=== PATIENT | female | born 1985 | race American Indian/Alaskan Native ===

== ENCOUNTER 2017-03-16 08:04 | Emergency (ER) | payer BC ==
[2017-03-16 08:22] VITALS: BMI 45.1
[2017-03-16 08:25] VITALS: BP 92/66; PULSE 98; RESP 20; TEMP 98.8; O2SAT 98
--- NOTE | 2017-03-16 09:32 | ED PDOC ---
Arrival/HPI - General Chief Complaint: Flu-like Symptoms Time Seen by Provider: 03/16/17 08:20 Historian: Patient - History of Present Illness Narrative History of Present Illness (Text): 03/16/17 09:26 Pt is a 31 yo F c/o flu-like symptoms x 3 days. She reports chills, sinus congestion, cough and loss of appetite since Sunday that has not resolved and is worsening. She states that despite OTC, she continues to cough until she she spits up blood and becomes nauseated. Reports diarrhea Sunday and Sunday but remained on liquids until today. Pt woke up extremely chilled and diaphoretic this morning. Pt denies abdominal pain, cp, LONG, vomiting or recent diarrhea. 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 Pt was diagnosed with asthma and she uses DuoNeb treatment prn. 03/16/17 09:35 Time/Duration: < week Symptom Onset: Gradual Symptom Course: Unchanged, Worsening Quality: Aching Severity Level: Moderate Activities at Onset: Rest, Light, Eating, Sleeping Context: Sitting, Standing, Walking Past Medical History - Provider Review Nursing Documentation Reviewed: Yes - Travel History Have you recently traveled outside [place] w/in the past 3 mons?: No - Past History Past History: No Previous - Infectious Disease Hx of Infectious Diseases: None - Tetanus Immunization Tetanus Immunization: Unknown - Reproductive Menopause: No Currently : No - Past Medical History Past Medical History: No Previous - Cardiac Hx Cardiac Disorders: No - Pulmonary Hx Respiratory Disorders: Yes Hx Asthma: Yes - Neurological Hx Neurological Disorder: No - HEENT Hx HEENT Disorder: No - Renal Hx Renal Disorder: No - Endocrine/Metabolic Hx Endocrine Disorders: No - Hematological/Oncological Hx Blood Disorders: No - Integumentary Hx Dermatological Disorder: No - Musculoskeletal/Rheumatological Hx Musculoskeletal Disorders: No - Gastrointestinal Hx Gastrointestinal Disorders: No - Genitourinary/Gynecological Hx Genitourinary Disorders: No - Psychiatric Hx Psychophysiologic Disorder: No Hx Substance Use: No - Past Surgical History Past Surgical History: No Previous - Surgical History Hx Abdominal Aortic Aneurysm Repair: No - Anesthesia Hx Anesthesia: No Family/Social History - Physician Review Nursing Documentation Reviewed: Yes Family/Social History: No Known Family HX Smoking Status: Never Smoked Hx Alcohol Use: No Hx Substance Use: No Allergies/Home Meds Allergies/Adverse Reactions: Allergies amoxicillin Allergy (Verified 03/16/17 08:21) ANAPHYLAXIS nut - unspecified Allergy (Verified 03/16/17 08:21) ANGIOEDEMA Penicillins Allergy (Verified 03/16/17 08:21) ANAPHYLAXIS Home Medications: Home Meds Medication Instructions Recorded Confirmed No Known Home Med 03/16/17 03/16/17 Review of Systems - Physician Review All systems were reviewed & negative as marked: Yes - Review of Systems Constitutional: Fatigue Eyes: absent: Normal, Vision Changes, Photophobia, Eye Pain, Other ENT: Sore Throat, Sinus Congestion. absent: Normal, Hearing Changes, Tinnitus, TMJ Pain, Voice Changes, Rhinorrhea, Epistaxis, Other Respiratory: Cough. absent: Normal, SOB, Sputum, Wheezing, Other Cardiovascular: Normal. absent: Chest Pain, Palpitations, Edema, Calf Pain, CHENEY , Orthopnea, SY, Syncope, Other Gastrointestinal: Normal, Diarrhea, Nausea, Appetite Changes. absent: Abdominal Pain, Stool Changes, Constipation, Vomiting, Hematochezia, Hematemesis , Anorexia, Food Intolerance, Other Skin: Normal. absent: Rash, Pruritis, Skin Lesions, Laceration, Abscess, Ulcer , Cellulitis, Other Neurological: Normal. absent: Headache, Dizziness, Focal Weakness, Gait Changes , Speech Changes, SC, Facial Droop, DE, Disequilibrium, SE, Seizure, Other Hemo/Lymphatic: Normal. absent: Adenopathy, Easy Bleeding, Easy Bruising, Other Physical Exam Vital Signs Reviewed: Yes Vital Signs Temp Pulse Resp BP Pulse Ox 03/16/17 08:22 98.8 F 98 H 20 92/66 L 98 Temperature: Afebrile Blood Pressure: Hypotensive Pulse: Regular Respiratory Rate: Normal Appearance: Positive for: Well-Appearing, Non-Toxic, Ill-Appearing, Uncomfortable. No: Comfortable, Unkept, Cachectic, Other Pain Distress: Mild Mental Status: Positive for: Alert and Oriented X 3 - Systems Exam Head: Present: Atraumatic Pupils: Present: PERRL Extroacular Muscles: Present: EOMI Conjunctiva: Present: Normal Ears: Present: Normal, NORMAL TM, Normal Canal Mouth: Present: Moist Mucous Membranes Pharnyx: Present: Other (hard palate ulceration, [id number]) Nose (External): Present: Atraumatic Nose (Internal): Present: Normal Inspection. No: No Active Bleeding, Moist, Engorged, Edematous, Boggy, Clear Mucous, Rhinorrhea, Purulent Mucous, Septal Deviation, Septal Hematoma, Epistaxis, Other Neck: Present: Normal Range of Motion. No: Meningeal Signs, MIDLINE TENDERNESS , Paraspinal Tenderness, JVD, Lymphadenopathy, Bruit, Trachea Midline, Other Respiratory/Chest: Present: Clear to Auscultation, Good Air Exchange. No: Respiratory Distress, Accessory Muscle Use, Wheezes, Decreased Breath Sounds, Rales, Retracting, Rhonchi, Tachypneic, Tender to Palpation, Other Cardiovascular: Present: Regular Rate and Rhythm, Normal S1, S2. No: Murmurs, Irregular Rhythm, Peripheal Pulses Present, Tachycardic, Bradycardic, Rub, Gallop, Muffled, Other Abdomen: Present: Normal Bowel Sounds. No: Tenderness, Distention, Peritoneal Signs, Rebound, Guarding, McBurney's Point Tender, Rovsing's Sign Present, Hernias, Feeding Tubes, Ostomy Tubes, Mass/Organomegaly, Scars, Other Upper Extremity: Present: Normal Inspection. No: Cyanosis, Edema, Normal ROM, NORMAL PULSES, Tenderness, Swelling, Erythema, Neurovascularly Intact, Temperature Abnormalties, Capillary Refill < 2s, Deformity, Norm 2-Pt Discrimination, Other Lower Extremity: Present: Normal Inspection. No: Edema, CALF TENDERNESS, NORMAL PULSES, Cyanosis, Normal ROM, Cisco's Sign, Tenderness, Swelling, Erythema, Deformity, Temperature Abnormalties, Neurovascularly Intact, Capillary Refill < 2 s, Other Skin: Present: Warm, Dry, Normal Color. No: Rashes, Diaphoretic, Erythematous, Induration, Hot, Cold, Pale, Laceration, Abscess, Abrasion, Other Psychiatric: Present: Alert, Oriented x 3, Normal Insight, Normal Concentration Medical Decision Making ED Course and Treatment: 03/16/17 09:45 Pt is a 31 yo F c/o flu-like symptoms x 3 days. She reports chills, sinus congestion, cough and loss of appetite since Sunday that has not resolved and is worsening. On exam, pt is shivering but talkative and ambulatory. Pt real has viral influenza but will work her up for the followin. Influenza 2. Bacterial infection 3. PNA Plan: Influenza Ag test-->NEGATIVE cbc w diff, cmp, UA-->wnl IVF 500cc bolus over 30 mins CXR 2 views--->unremarkable Given the lab findings, pt will be discharged home on supportive care of fluids , tylenol or ibuprofen for pain and inflammation, warm water gargle for mouth ulcer, rest and expectorant for bronchial mucus. advised to continue using Duoneb as instructed. - Lab Interpretations Lab Results: 03/16/17 10:15 03/16/17 10:15 Lab Results 03/16/17 10:25: Urine Color Yellow, Urine Appearance Clear, Urine pH 6.0, Ur Specific Armstrong 1.025, Urine Protein Trace H, Urine Glucose (UA) Negative, Urine Ketones Negative, Urine Blood Negative, Urine Nitrate Negative, Urine Bilirubin Negative, Urine Urobilinogen 0.2, Ur Leukocyte Esterase Negative, Urine RBC 0 - 2, Urine WBC 0 - 2, Ur Epithelial Cells 10 - 12, Urine Bacteria Trace 03/16/17 10:15: WBC 6.7, RBC 4.29, Hgb 11.9 L, Hct 35.8 L, MCV 83.4, MCH 27.7, MCHC 33.2, RDW 14.7 H, Plt Count 297, MPV 10.3, Gran % 60.9, Lymph % (Auto) 27.7 , [place] % (Auto) 9.2 H, Eos % (Auto) 2.1, Baso % (Auto) 0.1, Gran # 4.09, Lymph # 1.9, [place] # 0.6, Eos # 0.1, Baso # 0.01 03/16/17 10:15: Sodium 143, Potassium 4.2, Chloride 106, Carbon Dioxide 26, Anion Gap 16, BUN 14, Creatinine 0.7, Est GFR ( Amer) > 60, Est GFR (Non- Af Amer) > 60, Random Glucose 86, Calcium 9.3, Total Bilirubin 0.3, AST 44 H, ALT 53, Alkaline Phosphatase 104, Total Protein 8.4 H, Albumin 4.4, Globulin 4.0 , Albumin/Globulin Ratio 1.1 03/16/17 08:20: Influenza Typ A,B (EIA) Negative for flu a/b - RAD Interpretation Radiology Orders: 03/16/17 08:30 CHEST TWO VIEWS (PA/LAT) [RAD] Stat Official read indicates unremarkable Ampoule Examiner: Radiologist - EKG Interpretation EKG Interpretation (Text): 03/16/17 10:14 Wet read by TARIQ Addison: CXR shows infiltrates bilateral lung ji - Medication Orders Current Medication Orders: Discontinued Medications Sodium Chloride (Sodium Chloride 0.9%) 500 mls @ 999 mls/hr IV .Q31M STA Stop: 03/16/17 10:25 Last Admin: 03/16/17 10:36 Dose: 999 mls/hr eMAR Start Stop Document 03/16/17 10:36 SE (Rec: 03/16/17 10:36 SE [id number]) Intravenous Solution Start Date 03/16/17 Start Time 10:36 Disposition/Present on Arrival - Present on Arrival Any Indicators Present on Arrival: Yes History of DVT/PE: No History of Uncontrolled Diabetes: No Urinary Catheter: No History of Decub. Ulcer: No History Surgical Site Infection Following: None - Disposition Have Diagnosis and Disposition been Completed?: Yes Diagnosis: Upper respiratory infection with cough and congestion Disposition: HOME/ ROUTINE Disposition Time: 11:30 Isolation: Contact Patient Plan: Discharge Condition: IMPROVED Discharge Instructions (ExitCare): Upper Respiratory Infection (ED) Additional Instructions: Dear Patient, You have been diagnosed with an upper respiratory infection that responds best with supportive care such as plenty of rest, fluids, tylenol or ibuprofen for pain and fever. Please make sure you wash your hands frequently to avoid transmission of the virus to others. If you experience severe fever, pain, chest pain or shortness of breath of any other alarming symptoms, return to the emergency room immediately. Please follow up with your Primary Doctor in less than a week. All the best in your recovery. Referrals: Martha Felton MD [Primary Care Provider] - Follow up with primary Forms: [employer] (Yakut), WORK NOTE
[2017-03-16] MEDS ORDERED: Sodium Chloride 0.9% 500 ML IV STA (09:55)
[2017-03-16 10:30] LABS: URINE BILIRUBIN NEGATIVE (NEGATIVE); URINE BLOOD NEGATIVE (NEGATIVE); URINE GLUCOSE (UA) NEGATIVE (NEGATIVE); URINE LEUKOCYTE ESTERASE NEGATIVE Leu/uL (NEGATIVE); URINE NITRATE NEGATIVE (NEGATIVE); URINE PROTEIN TRACE mg/dL (<30 mg/dL); URINE UROBILINOGEN 0.2 E.U./dL (<1 E.U./dL)
[2017-03-16 10:33] LABS: URINE APPEARANCE CLEAR (CLEAR); URINE COLOR YELLOW (YELLOW)
[2017-03-16 10:34] LABS: BASO # 0.01 K/mm3 (0.0-2.0); BASO % 0.1 % (0.0-3.0); EOS # 0.1 (0.0-0.7); EOS % 2.1 % (1.5-5.0); GRAN # 4.09 (1.4-6.5); GRAN % 60.9 % (50.0-68.0); HEMOGLOBIN 11.9 g/dL (12.0-16.0); LYMPH # 1.9 (1.2-3.4); LYMPH % 27.7 % (22.0-35.0); MEAN CELL VOLUME 83.4 fl (80.0-105.0); MEAN CORPUSCULAR HEMOGLOBIN 27.7 pg (25.0-35.0); MEAN CORPUSCULAR HGB CONC 33.2 g/dl (31.0-37.0); MEAN PLATELET VOLUME 10.3 fl (7.0-11.0); MONO # 0.6 (0.1-0.6); MONO % 9.2 % (1.0-6.0); RBC 4.29 10^6/uL (3.5-6.1); RED CELL DISTRIBUTION WIDTH 14.7 % (11.5-14.5); WHITE BLOOD COUNT 6.7 10^3/ul (4.5-11.0)
[2017-03-16 10:37] LABS: ALBUMIN 4.4 g/dL (3.0-4.8); ALT/SGPT 53 U/L (7-56); AST/SGOT 44 U/L (14-36); BLOOD UREA NITROGEN 14 mg/dL (7-21); CALCIUM 9.3 mg/dL (8.4-10.5); GFR AFRICAN-AMERICAN > 60; GFR NON-AFRICAN AMERICAN > 60
[2017-03-16 10:39] LABS: ALB/GLOB RATIO 1.1 (1.1-1.8)
[2017-03-16 10:44] LABS: URINE RBC 0 - 2 /hpf (0-2); URINE WBC 0 - 2 /hpf (0-6)
[2017-03-16 10:45] LABS: URINE BACTERIA TRACE (NEG)
== END 2017-03-16 11:47 | disposition home or self-care (01) ==
LOC: MERGE 08:04 → ED 08:04
DX: J06.9 Acute upper respiratory infection, unspecified (principal); R05 Cough; J34.89 Other specified disorders of nose and nasal sinuses
CPT/HCPCS: 71046; 80053; 81001; 85025; 87804; 99284; J7040